=== PATIENT | female | born 1980 | race Caucasian/White ===

== ENCOUNTER 2016-08-14 17:06 | Emergency (ER) | payer OTHER ==
[2016-08-14] MEDS ORDERED: Sodium Chloride 0.9% 10 ML Syringe FLUSH PRN ×2 (17:07→18:05)
[2016-08-14] MEDS ORDERED: Ketorolac 30 MG/ML SDV IVPUSH ONE (18:05)
[2016-08-14] MEDS ORDERED: Ondansetron 4 MG/2 ML SDV IV ONE (18:05)
[2016-08-14] MEDS ORDERED: Sodium Chloride 0.9% 1,000 ML IV ONE (18:05)
[2016-08-14] MEDS ORDERED: HYDROmorphone 1 MG/ML Syringe IVPUSH ONE (18:07)
[2016-08-14 18:10] LABS: CHLORIDE,CL 104 mmol/L (101-111); SODIUM,NA 137 mmol/L (135-145)
[2016-08-14] MEDS ORDERED: cefTRIAXone 1 GM in Sodium Chloride 0.9% 50 ML IV ONE (18:28)
[2016-08-14] MEDS ORDERED: Tamsulosin 0.4 MG Cap.ER PO ONE (19:18)
--- NOTE | 2016-08-14 19:32 | EDM.PDOC ---
Scribed by Mackenzie Tate 08/14/161918 for Agustin Rausch MD ED HPI RENAL/ - General Chief Complaint: Genitourinary Problem Stated Complaint: KIDNEY STONE Time Seen by Provider: 08/14/16 18:03 Source of Information: Reports: Patient, RN, RN notes reviewed History Limitations: Reports: No limitations - History of Present Illness INITIAL COMMENTS - FREE TEXT/NARRATIVE: Patient with onset of severe right flank pain last night. Pain has been intermittent. No vomiting. Nausea with severe pain only. Symptom Onset Date: 08/13/16 Timing/Duration: Reports: Gradual onset Quality: Reports: ache Severity: severe Associated Symptoms: Reports: no other symptoms - Related Data Allergies/ADRs: Allergies Allergy/AdvReac Type Severity Reaction Status Date / Time IVP dye Allergy Itching Uncoded 09/15/15 14:01 Home Meds: Home Meds FLUoxetine [PROzac] 20 mg PO DAILY 10/14/13 [History] Levothyroxine [Synthroid] 88 mcg PO DAILY 10/14/13 [History] SUMAtriptan Succinate [Imitrex] 100 mg PO DAILY PRN 10/14/13 [History] Tylenol 1,000 mg PO DAILY PRN 10/14/13 [History] buPROPion [Wellbutrin XL] 300 mg PO DAILY 10/14/13 [History] Acetaminophen [Tylenol] 650 mg PO Q6H PRN #0 tablet 09/17/15 [Rx] Docusate Sodium [Colace] 100 mg PO BID PRN #0 cap 09/17/15 [Rx] Ferrous Sulfate 325 mg PO BID tablet 09/17/15 [Rx] Ibuprofen [Motrin] 800 mg PO Q8H PRN #0 tablet 09/17/15 [Rx] Levothyroxine [Synthroid] 88 mcg PO ACBREAKFAST tablet 09/17/15 [Rx] Sertraline [Zoloft] 50 mg PO DAILY #7 tablet 09/17/15 [Rx] Past Medical History HEENT History: Reports: Sinusitis Cardiovascular History: Reports: None Respiratory History: Reports: None Gastrointestinal History: Reports: None Genitourinary History: Reports: None CERTIFIED PHARMACY TECH History: Reports: Musculoskeletal History: Reports: Fracture Neurological History: Reports: Migraines Psychiatric History: Reports: Depression Endocrine/Metabolic History: Reports: Hypothyroidism Hematologic History: Reports: Anemia Immunologic History: Reports: None Oncologic (Cancer) History: Reports: None Dermatologic History: Reports: None - Infectious Disease History Infectious Disease History: Reports: Chicken pox - Past Surgical History Head Surgeries/Procedures: Reports: None HEENT Surgical History: Reports: Other (see below) Other HEENT Surgeries/Procedures: hx Rhinoplasty GI Surgical History: Reports: Cholecystectomy Social & Family History - Family History Family Medical History: Noncontributory - Tobacco Use Smoking Status *Q: Never Smoker - Caffeine Use Caffeine Use: Reports: Coffee, Soda - Alcohol Use Days Per Week of Alcohol Use: 0 - Recreational Drug Use Recreational Drug Use: No ED ROS GENERAL - Review of Systems Review Of Systems: ROS reveals no pertinent complaints other than HPI. ED EXAM, RENAL/ - Physical Exam Exam: See Below Exam Limited By: No limitations General Appearance: alert, WD/WN, no apparent distress Eye Exam: bilateral eye: normal inspection Ears: normal external exam, normal canal, hearing grossly normal, normal TMs Nose: normal inspection, normal mucosa, no blood Throat/Mouth: Normal inspection, Normal lips, Normal teeth, Normal gums, Normal oropharynx, Normal voice, No airway compromise Head: atraumatic, normocephalic Neck: normal inspection, supple, non-tender, full range of motion Respiratory/Chest: no respiratory distress, lungs clear, normal breath sounds, no accessory muscle use, chest non-tender Cardiovascular: normal peripheral pulses, regular rate, rhythm, no edema, no gallop, no JVD, no murmur, no rub GI/Abdominal: normal bowel sounds, soft, non tender, no organomegaly, no distention, no abnormal bruit, no mass Back Exam: normal inspection, full range of motion, NT Extremities: other (right CVA tenderness) Neurological: alert, oriented, CN II-XII intact, normal cognition, normal gait, normal reflexes, no motor/sensory deficits Psychiatric: normal affect, normal mood Skin Exam: Warm, Dry, Intact, Normal color, No rash Course - Vital Signs Last Recorded V/S: Last Vital Signs Temp 36.0 C 08/14/16 17:52 Pulse 67 08/14/16 17:52 Resp 16 08/14/16 17:52 BP 111/58 L 08/14/16 17:52 Pulse Ox 100 08/14/16 17:52 - Orders/Labs/Meds Orders: Active Orders 24 hr Category Date Time Status Peripheral IV Care [RC] . DIRECTED Care 08/14/16 17:07 Active Peripheral IV Care [RC] . DIRECTED Care 08/14/16 18:06 Active Abdomen Pelvis wo Cont [CT] Stat Exams 08/14/16 18:26 Taken CULTURE URINE [RM] Stat Lab 08/14/16 17:38 Received Sodium Chloride 0.9% [Saline Flush] Med 08/14/16 17:07 Active 10 ml FLUSH ASDIRECTED PRN Sodium Chloride 0.9% [Saline Flush] Med 08/14/16 18:05 Active 10 ml FLUSH ASDIRECTED PRN Peripheral IV Insertion Adult [OM.PC] Stat Oth 08/14/16 17:07 Ordered Peripheral IV Insertion Adult [OM.PC] Stat Oth 08/14/16 18:05 Ordered Medication Orders Sodium Chloride (Saline Flush) 10 ml FLUSH ASDIRECTED PRN PRN Reason: Keep Vein Open Last Admin: 08/14/16 18:28 Dose: 10 ml Sodium Chloride (Saline Flush) 10 ml FLUSH ASDIRECTED PRN PRN Reason: Keep Vein Open Last Admin: 08/14/16 18:28 Dose: 10 ml Labs: Laboratory Tests 08/14/16 08/14/16 08/14/16 Range/Units 17:38 17:38 17:38 WBC (5.0-10.0) 10^3/uL RBC (4.2-5.4) 10^6/uL Hgb (12.0-16.0) g/dL Hct (37.0-47.0) % MCV (80-100) fL MCH (27.0-34.0) pg MCHC (33.0-35.0) g/dL Plt Count (150-450) 10^3/uL Neut % (Auto) (42.2-75.2) % Lymph % (Auto) (20.5-50.1) % [place] % (Auto) (2-8) % Eos % (Auto) (1.0-3.0) % Baso % (Auto) (0.0-1.0) % Sodium (135-145) mmol/L Potassium (3.6-5.0) mmol/L Chloride (101-111) mmol/L Carbon Dioxide (21.0-31.0) mmol/L Anion Gap BUN (7-18) mg/dL Creatinine (0.6-1.3) mg/dL Est Cr Clr Drug Dosing mL/min Estimated GFR (MDRD) BUN/Creatinine Ratio Glucose (74-105) mg/dL Calcium (8.4-10.2) mg/dl Total Bilirubin (0.2-1.0) mg/dL AST (10-42) IU/L ALT (10-60) IU/L Alkaline Phosphatase (42-121) IU/L Total Protein (6.7-8.2) g/dl Albumin (3.2-5.5) g/dl Globulin Albumin/Globulin Ratio Urine Color Yellow (YELLOW) Urine Appearance Cloudy (CLEAR) Urine pH 5.5 (5.0-9.0) Ur Specific [place] >= 1.030 (1.005-1.030) Urine Protein 100 H (NEGATIVE) Urine Glucose (UA) Negative (NEGATIVE) Urine Ketones Trace H (NEGATIVE) Urine Occult Blood Large H (NEGATIVE) Urine Nitrite Negative (NEGATIVE) Urine Bilirubin Negative (NEGATIVE) Urine Urobilinogen 0.2 (0.2-1.0) mg/dL Ur Leukocyte Esterase Negative (NEGATIVE) Urine RBC >100 H /HPF Urine WBC 0-5 (0-5/HPF) /HPF Ur Epithelial Cells Moderate H /HPF Urine Bacteria Many H (0-FEW/HPF) /HPF Urine Mucus Moderate H /LPF Urine HCG, Qual Negative Urine Opiates Screen Negative (NEGATIVE) Ur Oxycodone Screen Negative (NEGATIVE) Urine Methadone Screen Negative (NEGATIVE) Ur Barbiturates Screen Negative (NEGATIVE) U Tricyclic Antidepress Negative (NEGATIVE) Ur Phencyclidine Scrn Negative (NEGATIVE) Ur Amphetamine Screen Negative (NEGATIVE) U Methamphetamines Scrn Negative (NEGATIVE) Urine MDMA Screen Negative (NEGATIVE) U Benzodiazepines Scrn Negative (NEGATIVE) Urine Cocaine Screen Negative (NEGATIVE) U Marijuana (THC) Screen Negative (NEGATIVE) 08/14/16 08/14/16 Range/Units 17:40 17:40 WBC 15.5 H (5.0-10.0) 10^3/uL RBC 4.54 (4.2-5.4) 10^6/uL Hgb 13.2 (12.0-16.0) g/dL Hct 40.0 (37.0-47.0) % MCV 88.1 (80-100) fL MCH 29.1 (27.0-34.0) pg MCHC 33.0 (33.0-35.0) g/dL Plt Count 299 (150-450) 10^3/uL Neut % (Auto) 80.1 H (42.2-75.2) % Lymph % (Auto) 11.6 L (20.5-50.1) % [place] % (Auto) 6.1 (2-8) % Eos % (Auto) 1.9 (1.0-3.0) % Baso % (Auto) 0.3 (0.0-1.0) % Sodium 137 (135-145) mmol/L Potassium 3.3 L (3.6-5.0) mmol/L Chloride 104 (101-111) mmol/L Carbon Dioxide 22.0 (21.0-31.0) mmol/L Anion Gap 14.3 BUN 18 (7-18) mg/dL Creatinine 0.8 (0.6-1.3) mg/dL Est Cr Clr Drug Dosing 99.01 mL/min Estimated GFR (MDRD) > 60 BUN/Creatinine Ratio 22.50 Glucose 102 (74-105) mg/dL Calcium 9.0 (8.4-10.2) mg/dl Total Bilirubin 0.3 (0.2-1.0) mg/dL AST 18 (10-42) IU/L ALT 19 (10-60) IU/L Alkaline Phosphatase 85 (42-121) IU/L Total Protein 7.7 (6.7-8.2) g/dl Albumin 4.5 (3.2-5.5) g/dl Globulin 3.2 Albumin/Globulin Ratio 1.41 Urine Color (YELLOW) Urine Appearance (CLEAR) Urine pH (5.0-9.0) Ur Specific [place] (1.005-1.030) Urine Protein (NEGATIVE) Urine Glucose (UA) (NEGATIVE) Urine Ketones (NEGATIVE) Urine Occult Blood (NEGATIVE) Urine Nitrite (NEGATIVE) Urine Bilirubin (NEGATIVE) Urine Urobilinogen (0.2-1.0) mg/dL Ur Leukocyte Esterase (NEGATIVE) Urine RBC /HPF Urine WBC (0-5/HPF) /HPF Ur Epithelial Cells /HPF Urine Bacteria (0-FEW/HPF) /HPF Urine Mucus /LPF Urine HCG, Qual Urine Opiates Screen (NEGATIVE) Ur Oxycodone Screen (NEGATIVE) Urine Methadone Screen (NEGATIVE) Ur Barbiturates Screen (NEGATIVE) U Tricyclic Antidepress (NEGATIVE) Ur Phencyclidine Scrn (NEGATIVE) Ur Amphetamine Screen (NEGATIVE) U Methamphetamines Scrn (NEGATIVE) Urine MDMA Screen (NEGATIVE) U Benzodiazepines Scrn (NEGATIVE) Urine Cocaine Screen (NEGATIVE) U Marijuana (THC) Screen (NEGATIVE) Meds: Medications Generic Name Dose Route Start Last Admin Trade Name Freq PRN Reason Stop Dose Admin Sodium Chloride 10 ml 08/14/16 17:07 08/14/16 18:28 Saline Flush FLUSH 10 ml ASDIRECTED PRN Administration Keep Vein Open Sodium Chloride 10 ml 08/14/16 18:05 08/14/16 18:28 Saline Flush FLUSH 10 ml ASDIRECTED PRN Administration Keep Vein Open Discontinued Medications Generic Name Dose Route Start Last Admin Trade Name Freq PRN Reason Stop Dose Admin Hydromorphone HCl 0.5 mg 08/14/16 18:07 08/14/16 18:23 Dilaudid IVPUSH 08/14/16 18:08 0.5 mg ONETIME ONE Administration Sodium Chloride 1,000 mls @ 999 mls/hr 08/14/16 18:05 08/14/16 18:19 Normal Saline IV 08/14/16 19:05 999 mls/hr .BOLUS ONE Administration Ceftriaxone Sodium 1 gm/ 50 mls @ 100 mls/hr 08/14/16 18:28 08/14/16 18:39 Sodium Chloride IV 08/14/16 18:57 100 mls/hr ONETIME ONE Administration Ketorolac Tromethamine 30 mg 08/14/16 18:05 08/14/16 18:26 Toradol IVPUSH 08/14/16 18:06 30 mg ONETIME ONE Administration Ondansetron HCl 4 mg 08/14/16 18:05 08/14/16 18:21 Zofran IV 08/14/16 18:06 4 mg ONETIME ONE Administration Tamsulosin HCl 0.4 mg 08/14/16 19:18 Flomax PO 08/14/16 19:19 ONETIME ONE - Radiology Interpretation Free Text/Narrative:: CT abdomen and pelvis: Right hydroureter with 4-5mm obstructing stone in the right distal ureter. See rad report. CT Results Date: 08/14/16 Departure - Departure Time of Disposition: 19:16 Disposition: Home, Self-Care 01 Condition: fair Clinical Impression: Kidney stone on right side Instructions: Kidney Stones, [id number] Forms: ED Department Discharge Additional Instructions: Flomax 0.4mg. Cephalexin 500mg. Percocet 5mg/325mg. Zofran 4mg, ODT. Call [facility] urology tomorrow morning to scheduled an appointment for evaluation and treatment of right obstructing kidney stone. Follow up with primary doctor if difficulty with getting appointment with urology. Follow up in ER if difficulty passing urine, develops fever or uncontrolled pain or any other concerns. - My Orders Last 24 Hours: My Active Orders 08/14/16 17:07 Peripheral IV Care [RC] . DIRECTED Sodium Chloride 0.9% [Saline Flush] 10 ml FLUSH ASDIRECTED PRN Peripheral IV Insertion Adult [OM.PC] Stat 08/14/16 17:38 CULTURE URINE [RM] Stat 08/14/16 18:05 Sodium Chloride 0.9% [Saline Flush] 10 ml FLUSH ASDIRECTED PRN Peripheral IV Insertion Adult [OM.PC] Stat 08/14/16 18:06 Peripheral IV Care [RC] . DIRECTED 08/14/16 18:26 Abdomen Pelvis wo Cont [CT] Stat - Assessment/Plan Last 24 Hours: My Active Orders 08/14/16 17:07 Peripheral IV Care [RC] . DIRECTED Sodium Chloride 0.9% [Saline Flush] 10 ml FLUSH ASDIRECTED PRN Peripheral IV Insertion Adult [OM.PC] Stat 08/14/16 17:38 CULTURE URINE [RM] Stat 08/14/16 18:05 Sodium Chloride 0.9% [Saline Flush] 10 ml FLUSH ASDIRECTED PRN Peripheral IV Insertion Adult [OM.PC] Stat 08/14/16 18:06 Peripheral IV Care [RC] . DIRECTED 08/14/16 18:26 Abdomen Pelvis wo Cont [CT] Stat I have read and agree with the documentation that has been completed regarding this visit. By signing this record, I attest that the documentation was completed in my physical presence and is an accurate record of the encounter.
[2016-08-14] MEDS ORDERED: Acetaminophen/oxyCODONE 325-5 MG Tab ONE (19:35)
[2016-08-14] MEDS ORDERED: Ondansetron 4 MG Tab.DIS ONE (19:36)
[2016-08-14] MEDS ORDERED: Ondansetron 4 MG Tab.DIS PO ONE (19:36)
[2016-08-14] MEDS ORDERED: Acetaminophen/oxyCODONE 325-5 MG Tab PO ONE (19:36)
[2016-08-14 19:52] VITALS: BP 121/79
== END 2016-08-14 19:52 | disposition home or self-care (01) ==
LOC: DL.ED 17:06
DX: N13.4 Hydroureter (principal); N20.1 Calculus of ureter; Z91.041 Radiographic dye allergy status; Z79.899 Other long term (current) drug therapy; F32.9 Major depressive disorder, single episode, unspecified; E03.9 Hypothyroidism, unspecified; D64.9 Anemia, unspecified
CPT/HCPCS: 36415; 74176; 80053; 80305; 81001; 81025; 85025; 87086; 96361; 96365; 96375; 99284; A9270; J0696; J1170; J1885; J2405; J7030; J7050